=== PATIENT | male | born 1960 | race Caucasian/White ===

== ENCOUNTER → 2016-05-23 | Outpatient (CLI) | payer BC ==
[2016-05-23 06:58] LABS: MEAN CORPUSCULAR HEMOGLOBIN 30.2 pg (27.0-33.0); MEAN CORPUSCULAR HGB CONC 33.1 g/dl (32.0-36.5); MEAN CORPUSCULAR VOLUME 91.4 fl (80.0-96.0); RED CELL DISTRIBUTION WIDTH 12.2 % (11.5-14.5); WHITE BLOOD COUNT 7.5 K/mm3 (4.0-10.0)
[2016-05-23 07:25] LABS: ALBUMIN 3.6 GM/DL (3.2-5.2); ALBUMIN/GLOBULIN RATIO 1.13 (1.00-1.93); ALKALINE PHOSPHATASE 85 U/L (45-117); ALT/SGPT 38 U/L (12-78); ANION GAP 9 MEQ/L (8-16); AST/SGOT 21 U/L (15-37); BILIRUBIN,TOTAL 0.3 MG/DL (0.2-1.0); BLOOD UREA NITROGEN 17 MG/DL (7-18); CALCIUM LEVEL 9.1 MG/DL (8.5-10.1); CARBON DIOXIDE LEVEL 26 MEQ/L (21-32); CHLORIDE LEVEL 109 MEQ/L (98-107); CHOLESTEROL LEVEL 193 MG/DL (<200); GLOMERULAR FILTRATION RATE > 60.0 (>56); GLUCOSE, FASTING 101 MG/DL (70-105); POTASSIUM SERUM 4.5 MEQ/L (3.5-5.1); SODIUM LEVEL 144 MEQ/L (136-145); TOTAL PROTEIN 6.8 GM/DL (6.4-8.2); TRIGLYCERIDES LEVEL 121 MG/DL (<150)
== END ==
LOC: M LAB 06:19
PROVIDERS: ATTEND Nurse Practitioner Adult Health
DX: Z00.00 Encounter for general adult medical examination without abnormal findings (principal)
CPT/HCPCS: 36415; 80053; 80061; 85027; G0103

== ENCOUNTER 2016-08-25 15:02 | Emergency (ER) | payer BC ==
[~2016-08-25] VITALS: Ht 175.3 cm; Wt 108.9 kg
[2016-08-25 15:03] VITALS: BP 128/87
[2016-08-25] MEDS ORDERED: CILO0.3S OU (15:14)
[2016-08-25] MEDS ORDERED: TOBRAMYCIN 0.3% OPHTH SOLN 5 ML OU ONE (16:00)
[2016-08-25] MEDS ORDERED: TOBR3OPD OD ×2 (16:08→16:11)
== END 2016-08-25 16:13 | disposition home or self-care (01) ==
LOC: M ED 16:01
DX: H10.211 Acute toxic conjunctivitis, right eye (principal); T48.4X5A Adverse effect of expectorants, initial encounter; X58.XXXA Exposure to other specified factors, initial encounter; Y92.89 Other specified places as the place of occurrence of the external cause; Y93.89 Activity, other specified; Y99.8 Other external cause status; H57.11 Ocular pain, right eye; F17.200 Nicotine dependence, unspecified, uncomplicated

== ENCOUNTER 2017-01-14 11:11 | Emergency (ER) | payer BC ==
[~2017-01-14] VITALS: Ht 175.3 cm; Wt 109.1 kg
[~2017-01-14 11:11] MED LIST: CILO0.3S OU; TOBR3OPD OD
[2017-01-14 11:17] VITALS: BP 157/89
[2017-01-14] MEDS ORDERED: LOVA20TA2 PO (11:24)
[2017-01-14] MEDS ORDERED: BISO5TAB2 PO (11:24)
[2017-01-14] MEDS ORDERED: [UNRECOGNIZED DRUG - CODE] OT (12:21)
== END 2017-01-14 12:35 | disposition home or self-care (01) ==
LOC: M ED 11:11
DX: H61.23 Impacted cerumen, bilateral (principal); I10 Essential (primary) hypertension; E78.00 Pure hypercholesterolemia, unspecified; F17.200 Nicotine dependence, unspecified, uncomplicated; Z79.899 Other long term (current) drug therapy